=== PATIENT | male | born 1985 | race African-American/Black ===

== ENCOUNTER 2025-11-04 11:31 | Emergency (ER) | payer MEDICAID ==
[~2025-11-04] VITALS: Ht 182.9 cm; Wt 127.0 kg
[~2025-11-04 11:31] MED LIST: LORA-250 PO
[2025-11-04 11:34] VITALS: O2SAT 100
[2025-11-04 12:05] LABS: BASOPHILS % 1.3 % (0.0-2.0); EOSINOPHILS % 2.8 % (0.0-5.0); HEMATOCRIT. 42.9 % (42.0-52.0); HEMOGLOBIN. 14.2 g/dL (14.0-18.0); LYMPHOCYTES % 21.6 % (20.0-50.0); MEAN PLATELET VOLUME 8.7 fl (7.4-10.4); MONOCYTES % 7.5 % (2.0-8.0); NEUTROPHILS % 66.8 % (40.0-76.0); PLATELET 328 x1000/uL (130-400); RED BLOOD CELL COUNT 5.40 mill/uL (4.7-6.1); RED CELL DISTRIBUTION WIDTH 14.3 % (11.6-14.6)
[2025-11-04 12:19] LABS: CREATININE 1.3 mg/dL (0.6-1.3); ETHANOL BLOOD < 10 mg/dL (<10); UREA NITROGEN BLOOD 12 mg/dL (9-23)
[2025-11-04 12:56] LABS: *AMPHETAMINES SCREEN URINE PRESUMPTIVE POSITIVE (NEGATIVE); *BARBITURATES SCREEN URINE NEGATIVE (NEGATIVE); *BENZODIAZEPINES SCREEN URINE NEGATIVE (NEGATIVE); *COCAINE SCREEN URINE NEGATIVE (NEGATIVE); CANNABINOID URINE SCREEN NEGATIVE (NEGATIVE); ECSTASY MDMA SCREEN URINE CONF.TEST INDICATED (NEGATIVE); METHADONE URINE SCREEN NEGATIVE (NEGATIVE); OPIATES URINE SCREEN NEGATIVE (NEGATIVE); PHENCYCLIDINE URINE SCREEN NEGATIVE (NEGATIVE)
[2025-11-04] MEDS: POTASSIUM CHLORIDE 20MEQ/PACKET PO ONE (13:27)
[2025-11-05] MEDS: CITALOPRAM HYDROBROMIDE 10MG TABLET PO SCH (10:00)
[2025-11-05 14:54] VITALS: BP 155/98; PULSE 84; RESP 19; TEMP 36.8; O2SAT 98
[2025-11-05] MEDS ORDERED: QUETIAPINE FUMARATE 25MG TABLET PO SCH (21:00)
== END 2025-11-05 15:03 ==
LOC: ER 11:31
DX: R45.851 Suicidal ideations (principal); F32.A Depression, unspecified; I10 Essential (primary) hypertension; Z59.00 Homelessness unspecified; Z79.899 Other long term (current) drug therapy; Z20.822 Contact with and (suspected) exposure to COVID-19
CPT/HCPCS: 99285; 87426; 80048; 80307; 85025; 36415; 93005; G0480; 80305; 80320; 80329